=== PATIENT | female | born 1975 | race African-American/Black ===

== ENCOUNTER 2016-05-14 22:33 | Outpatient (CLI) | payer OTHER | END 2016-05-14 22:34 | disposition home or self-care (01) | DX: G47.33 Obstructive sleep apnea (adult) (pediatric) (principal); Z68.41 Body mass index [BMI] 40.0-44.9, adult ==

== ENCOUNTER 2016-11-15 17:58 | Outpatient (CLI) | payer OTHER ==
--- NOTE | 2016-11-16 08:56 | XRAY Report ---
THREE-VIEW LEFT KNEE: 11/15/2016 CLINICAL INDICATION: Pain. FINDINGS: AP, lateral, sunrise views of the left knee demonstrate no evidence of fracture or disloca tion. The joint spaces are preserved. No effusion is present. IMPRESSION: NORMAL LEFT KNEE. JOB #: [id number] EXT JOB #:[id number]
== END 2016-11-15 17:59 | disposition home or self-care (01) ==
LOC: DI 17:58
PROVIDERS: ATTEND Internal Medicine
DX: M25.562 Pain in left knee (principal)

== ENCOUNTER 2017-01-10 15:35 | Outpatient (CLI) | payer OTHER | END 2017-01-10 15:36 | disposition home or self-care (01) | LOC: SC 15:35 | PROVIDERS: ATTEND Internal Medicine Pulmonary Disease | DX: G47.33 Obstructive sleep apnea (adult) (pediatric) (principal) | CPT/HCPCS: 99212 ==

== ENCOUNTER 2017-02-15 15:52 | Outpatient (CLI) | payer OTHER | END 2017-02-15 15:53 | disposition home or self-care (01) | LOC: SC 15:52 | PROVIDERS: ATTEND Nurse Practitioner Family | DX: G47.33 Obstructive sleep apnea (adult) (pediatric) (principal) | CPT/HCPCS: 99212; 99214 ==

== ENCOUNTER 2017-04-27 07:50 | Outpatient (CLI) | payer OTHER ==
[2017-04-27 08:23] LABS: ALBUMIN 4.4 g/dL (3.2-5.5); ALBUMIN/GLOBULIN RATIO 1.2 (1.0-2.2); ALKALINE PHOSPHATASE 43 IU/L (42-121); ALT ALANINE AMINOTRANSFERASE 26 IU/L (10-60); AST ASPARTATE AMINOTRANSFERASE 30 IU/L (10-42); BILIRUBIN,TOTAL 0.7 mg/dL (0.2-1.0); BUN - BLOOD UREA NITROGEN 14 mg/dL (6-20); CALCIUM 9.5 mg/dL (8.5-10.3); CARBON DIOXIDE - CO2 25 mmol/L (21-32); CHLORIDE 102 mmol/L (101-111); CHOL/HDL RATIO 4.1 (<4.4); CHOLESTEROL 141 mg/dL; CREATININE 0.8 mg/dL (0.4-1.0); GFR - MDRD 97 (>89); GLUCOSE 111 mg/dL (70-100); HDL CHOLESTEROL 34 mg/dL; LDL CHOLESTEROL,CALCULATED 68 mg/dL; SODIUM 138 mmol/L (135-145); VLDL CHOLESTEROL 39 mg/dL
[2017-04-27 08:33] LABS: CREATININE,URINE 50.4 mg/dL
[2017-04-27 08:35] LABS: THYROID STIMULATING HORMONE 11.79 uIU/mL (0.34-5.60)
[2017-04-27 08:36] LABS: MICROALBUMIN,URINE < 0.3 mg/dL (0-300.0)
[2017-04-27 08:38] LABS: FREE T4 (FREE THYROXINE) 0.89 ng/dL (0.58-1.64)
[2017-04-27 08:53] LABS: HB2 TOTAL 14.2 g/dL; HEMOGLOBIN A1C 0.75 g/dL
== END 2017-04-27 07:51 | disposition home or self-care (01) ==
LOC: LAB 07:50
PROVIDERS: ATTEND Internal Medicine Endocrinology, Diabetes & Metabolism
DX: E11.65 Type 2 diabetes mellitus with hyperglycemia (principal); E78.5 Hyperlipidemia, unspecified; I10 Essential (primary) hypertension; E03.9 Hypothyroidism, unspecified
CPT/HCPCS: 36415; 80053; 80061; 82043; 82570; 83036; 84439; 84443

== ENCOUNTER 2017-07-12 07:52 | Outpatient (CLI) | payer OTHER ==
[2017-07-12 08:42] LABS: HB2 TOTAL 14.3 g/dL; HEMOGLOBIN A1C 0.63 g/dL; HEMOGLOBIN A1C % 6.2 % (4.6-6.2)
[2017-07-12 08:51] LABS: CHOL/HDL RATIO 3.7 (<4.4); CHOLESTEROL 110 mg/dL; HDL CHOLESTEROL 30 mg/dL; LDL CHOLESTEROL,CALCULATED 59 mg/dL; VLDL CHOLESTEROL 21 mg/dL
[2017-07-12 09:04] LABS: THYROID STIMULATING HORMONE 0.27 uIU/mL (0.34-5.60)
[2017-07-12 09:06] LABS: FREE T4 (FREE THYROXINE) 1.47 ng/dL (0.58-1.64)
== END 2017-07-12 07:53 | disposition home or self-care (01) ==
LOC: LAB 07:52
PROVIDERS: ATTEND Internal Medicine Endocrinology, Diabetes & Metabolism
DX: E11.9 Type 2 diabetes mellitus without complications (principal); E78.5 Hyperlipidemia, unspecified; I10 Essential (primary) hypertension; E03.9 Hypothyroidism, unspecified; E66.9 Obesity, unspecified
CPT/HCPCS: 36415; 80061; 83036; 83721; 84439; 84443

== ENCOUNTER 2017-11-21 17:07 | Outpatient (CLI) | payer OTHER ==
[2017-11-21 17:57] LABS: THYROID STIMULATING HORMONE 7.18 uIU/mL (0.34-5.60)
[2017-11-21 17:59] LABS: FREE T4 (FREE THYROXINE) 0.72 ng/dL (0.58-1.64)
[2017-11-21 18:09] LABS: HB2 TOTAL 13.1 g/dL; HEMOGLOBIN A1C 0.54 g/dL; HEMOGLOBIN A1C % 5.9 % (4.6-6.2)
== END 2017-11-21 17:08 | disposition home or self-care (01) ==
LOC: LAB 17:07
PROVIDERS: ATTEND Nurse Practitioner Family
DX: E11.9 Type 2 diabetes mellitus without complications (principal); E03.9 Hypothyroidism, unspecified
CPT/HCPCS: 36415; 83036; 84439; 84443

== ENCOUNTER 2018-02-15 07:37 | Outpatient (CLI) | payer OTHER ==
[2018-02-15 08:16] LABS: CHOL/HDL RATIO 3.2 (<4.4); CHOLESTEROL 140 mg/dL; HDL CHOLESTEROL 44 mg/dL; LDL CHOLESTEROL,CALCULATED 75 mg/dL; LDL/HDL RATIO 1.7 (<4.4); VLDL CHOLESTEROL 21 mg/dL
[2018-02-15 09:02] LABS: THYROID STIMULATING HORMONE 0.86 uIU/mL (0.34-5.60)
[2018-02-15 09:04] LABS: FREE T4 (FREE THYROXINE) 1.08 ng/dL (0.58-1.64)
== END 2018-02-15 07:38 | disposition home or self-care (01) ==
LOC: LAB 07:37
PROVIDERS: ATTEND Internal Medicine Endocrinology, Diabetes & Metabolism
DX: I10 Essential (primary) hypertension (principal); E11.65 Type 2 diabetes mellitus with hyperglycemia; E66.9 Obesity, unspecified; E03.9 Hypothyroidism, unspecified; E78.5 Hyperlipidemia, unspecified
CPT/HCPCS: 36415; 80061; 83721; 84439; 84443

== ENCOUNTER 2018-02-16 07:46 | Outpatient (CLI) | payer OTHER ==
[2018-02-16 13:51] LABS: HB2 TOTAL 13.9 g/dL; HEMOGLOBIN A1C 0.56 g/dL; HEMOGLOBIN A1C % 5.8 % (4.6-6.2)
== END 2018-02-16 07:47 | disposition home or self-care (01) ==
LOC: LAB 07:46
PROVIDERS: ATTEND Nurse Practitioner Family
DX: E11.9 Type 2 diabetes mellitus without complications (principal); E03.9 Hypothyroidism, unspecified
CPT/HCPCS: 36415; 83036

== ENCOUNTER 2018-03-17 08:04 | Outpatient (CLI) | payer OTHER ==
--- NOTE | 2018-03-20 09:08 | Mammography Report ---
Reason: SCREENING MAMMO Procedure Date: 03/17/2018 Accession Number: [id number] / [id number] Procedure: JEFF - Screening Mammo w/Usman CPT Code: FULL RESULT: EXAM: Screening Mammo w/Usman DATE: 03/17/2018 9:40 AM CLINICAL HISTORY: 42-year-old female with family history of breast cancer in a paternal grandmother and paternal aunt at unknown age presents for screening. TECHNIQUE: Bilateral CC and MLO views were obtained. COMPARISON: 11/08/2014, 09/11/2009. FINDINGS: The breasts demonstrate diffuse fatty replacement bilaterally. No suspicious masses, clustered microcalcifications, or regions of architectural distortion are identified. IMPRESSION: Negative examination RECOMMENDATION: Routine annual screening unless otherwise clinically indicated. BIRADS CATEGORY 1: Negative STANDARD QUALIFYING STATEMENTS: 1. This examination was not reviewed with the aid of Computer-Aided Detection (CAD). 2. A negative or benign imaging report should not delay biopsy if clinically suspicious findings are present. Consider surgical consultation if warranted. More than 5% of cancers are not identified by imaging. 3. Dense breasts may obscure an underlying neoplasm. 4. This examination was reviewed with the aid of 3D breast imaging (tomosynthesis).
== END 2018-03-17 08:05 | disposition home or self-care (01) ==
LOC: DI 08:04
PROVIDERS: ATTEND Nurse Practitioner Family
DX: Z12.31 Encounter for screening mammogram for malignant neoplasm of breast (principal); Z80.3 Family history of malignant neoplasm of breast
CPT/HCPCS: 77063; 77067

== ENCOUNTER 2018-12-12 19:51 | Outpatient (CLI) | payer BC, OTHER ==
--- NOTE | 2018-12-13 12:07 | Ultrasound Report ---
Reason: IUD SURVEILLANCE, LOW BACK PAIN Procedure Date: 12/12/2018 Accession Number: [id number] / [id number] Procedure: US - Pelvic w/Transvaginal CPT Code: FULL RESULT: EXAM: PELVIC ULTRASOUND EXAM DATE: 12/12/2018 09:35 PM. CLINICAL HISTORY: IUD surveillance, low back pain. COMPARISON: None. TECHNIQUE: Realtime transabdominal pelvic scan performed to identify the uterus and adnexa and as an overview of other pelvic structures, followed by transvaginal scan to provide greater detail of the uterus and adnexa, with static image documentation. FINDINGS: Uterus: 9.6 x 4.3 x 4.1 cm, volume 89 cc. Anteverted position. Normal overall size and echotexture. Masses: None. Endometrium: 8.0 mm. There is an IUD in situ. The position appears satisfactory. Cervix: Unremarkable. Right Ovary: 2.9 x 1.1 x 2.3 cm, volume 3.8 cc. Normal echotexture and blood flow. Left Ovary: 5.0 x 3.0 x 3.9 cm, volume 36 cc. Left ovarian cyst measures 3.6 cm. Free Fluid: None. Other: None. IMPRESSION: IUD in satisfactory position. Left ovarian cyst. RADIA
== END 2018-12-12 19:52 | disposition home or self-care (01) ==
LOC: DI 19:51
PROVIDERS: ATTEND Nurse Practitioner
DX: Z30.431 Encounter for routine checking of intrauterine contraceptive device (principal); N83.202 Unspecified ovarian cyst, left side
CPT/HCPCS: 76830; 76856

== ENCOUNTER 2019-03-27 07:23 | Outpatient (CLI) | payer BC, OTHER ==
[2019-03-27 07:59] LABS: ALBUMIN 4.5 g/dL (3.2-5.5); ALBUMIN/GLOBULIN RATIO 1.3 (1.0-2.2); ALKALINE PHOSPHATASE 40 IU/L (42-121); ALT ALANINE AMINOTRANSFERASE 17 IU/L (10-60); AST ASPARTATE AMINOTRANSFERASE 19 IU/L (10-42); BILIRUBIN,TOTAL 0.9 mg/dL (0.2-1.0); BUN - BLOOD UREA NITROGEN 15 mg/dL (6-20); CALCIUM 9.3 mg/dL (8.5-10.3); CARBON DIOXIDE - CO2 28 mmol/L (21-32); CHLORIDE 99 mmol/L (101-111); CHOL/HDL RATIO 4.1 (<4.4); CHOLESTEROL 185 mg/dL; CREATININE 0.7 mg/dL (0.4-1.0); GFR - MDRD 112 (>89); GLUCOSE 144 mg/dL (70-100); HDL CHOLESTEROL 45 mg/dL; LDL CHOLESTEROL,CALCULATED 111 mg/dL; LDL/HDL RATIO 2.5 (<4.4); SODIUM 137 mmol/L (135-145); VLDL CHOLESTEROL 29 mg/dL
[2019-03-27 08:53] LABS: HB2 TOTAL 13.6 g/dL; HEMOGLOBIN A1C 0.65 g/dL; HEMOGLOBIN A1C % 6.5 % (4.6-6.2)
[2019-03-27 11:50] LABS: FREE T4 (FREE THYROXINE) 1.07 ng/dL (0.58-1.64)
== END 2019-03-27 07:24 | disposition home or self-care (01) ==
LOC: LAB 07:23
PROVIDERS: ATTEND Nurse Practitioner
DX: E11.9 Type 2 diabetes mellitus without complications (principal); E78.5 Hyperlipidemia, unspecified; E03.9 Hypothyroidism, unspecified; I10 Essential (primary) hypertension
CPT/HCPCS: 36415; 80053; 80061; 83036; 83721; 84439; 84443

== ENCOUNTER 2019-03-29 17:19 | Outpatient (CLI) | payer BC, OTHER ==
--- NOTE | 2019-03-31 11:12 | Ultrasound Report ---
Reason: HX OVARIAN CYST, LOW BACK PAIN Procedure Date: 03/29/2019 Accession Number: [id number] / [id number] Procedure: US - Pelvic w/Transvaginal CPT Code: Final Report FULL RESULT: EXAM: PELVIC ULTRASOUND EXAM DATE: 03/29/2019 06:16 PM. CLINICAL HISTORY: History of ovarian cyst, low back pain. COMPARISON: PELVIC W/TRANSVAGINAL 12/12/2018 8:33 PM. TECHNIQUE: Realtime transabdominal pelvic scan performed to identify the uterus and adnexa and as an overview of other pelvic structures, followed by transvaginal scan to provide greater detail of the uterus and adnexa, with static image documentation. FINDINGS: Uterus: 10.7 x 3.7 x 5.1 cm, volume 103 cc. Anteverted position. Normal overall size and echotexture. Masses: None. Endometrium: 6 mm. IUD is in normal position. No abnormal flow, endometrial mass or focal thickening. Cervix: No mass. Small volume fluid noted. Right Ovary: Seen only on transabdominal imaging. Ovary was not well seen. 2.5 x 1.7 x 2 cm, volume 4.3 cc. Normal echotexture and blood flow. Left Ovary: Seen only on transabdominal imaging. Ovary not well seen. 1.5 x 1.6 x 2.4 cm, volume 2.9 cc. Normal echotexture and blood flow. Free Fluid: None. Other: Study limited by bowel gas and body habitus. IMPRESSION: 1. Study significantly limited by body habitus. 2. IUD not well seen but appears to be in satisfactory position. No endometrial mass or polyp. 3. Both ovaries are only seen on transabdominal imaging. No gross abnormality. Normal bilateral adnexa. RADIA
== END 2019-03-29 17:20 | disposition home or self-care (01) ==
LOC: DI 17:19
PROVIDERS: ATTEND Nurse Practitioner
DX: M54.5 Low back pain (principal); Z87.42 Personal history of other diseases of the female genital tract; Z97.5 Presence of (intrauterine) contraceptive device
CPT/HCPCS: 76830; 76856

== ENCOUNTER 2019-05-10 07:09 | Outpatient (CLI) | payer BC, OTHER ==
[2019-05-10 07:44] LABS: BASOPHILS % (AUTO) 0.4 %; EOSINOPHILS # (AUTO) 0.2 10^3/uL (0.0-0.7); EOSINOPHILS % (AUTO) 2.9 %; HGB - HEMOGLOBIN 13.6 g/dL (12.0-16.0); LYMPHOCYTES # (AUTO) 1.9 10^3/uL (1.5-3.5); LYMPHOCYTES % (AUTO) 26.2 %; MEAN CORPUSCULAR HGB CONC 32.7 g/dL (32.0-36.0); MEAN CORPUSCULAR VOLUME 85.6 fL (81.0-99.0); MEAN PLATELET VOLUME 9.5 fL (7.9-10.8); MONOCYTES # (AUTO) 0.6 10^3/uL (0.0-1.0); MONOCYTES % (AUTO) 7.7 %; NEUTROPHILS # (AUTO) 4.5 10^3/uL (1.5-6.6); NEUTROPHILS % (AUTO) 62.4 %; PLT - PLATELET COUNT 279 10^3/uL (130-450); RED BLOOD COUNT 4.86 10^6/uL (4.20-5.40); RED CELL DISTRIBUTION WIDTH 12.5 % (12.0-15.0); WHITE BLOOD COUNT 7.3 x10^3/uL (4.8-10.8)
[2019-05-10 09:39] LABS: MAGNESIUM 2.5 mg/dL (1.7-2.8)
== END 2019-05-10 07:10 | disposition home or self-care (01) ==
LOC: LAB 07:09
PROVIDERS: ATTEND Nurse Practitioner
DX: E11.9 Type 2 diabetes mellitus without complications (principal); R25.2 Cramp and spasm
CPT/HCPCS: 36415; 80051; 83735; 85025

== ENCOUNTER 2019-05-14 19:36 | Outpatient (CLI) | payer BC, OTHER ==
--- NOTE | 2019-05-15 13:46 | Ultrasound Report ---
Reason: LEG CRAMPS BILAT, DIABETES TYPE 2 Procedure Date: 05/14/2019 Accession Number: [id number] / [id number] Procedure: US - Duplex Ext Veins Bilateral CPT Code: Final Report FULL RESULT: EXAM: BILATERAL LOWER EXTREMITY VENOUS ULTRASOUND EXAM DATE: 05/14/2019 09:14 PM. CLINICAL HISTORY: LEG CRAMPS BILAT, DIABETES TYPE 2. COMPARISON: None. TECHNIQUE: Real-time sonographic vascular imaging was performed by the wind turbine installer through the lower extremities utilizing both color-flow and Doppler spectral analysis. Multiple agency service representative static images were saved for review. FINDINGS: Right: Common Femoral Vein (CFV): Normal. CFV-GSV Junction: Normal. Profunda Femoral Vein (PFV): Normal. Femoral Vein (FV) Prox: Normal. Femoral Vein (FV) Mid: Normal. Femoral Vein (FV) Dist: Normal. Popliteal Vein: Normal. Posterior Tibial Veins: No thrombus. Limited visualization Peroneal Veins: Normal. Left: Common Femoral Vein (CFV): Normal. CFV-GSV Junction: Normal. Profunda Femoral Vein (PFV): Normal. Femoral Vein (FV) Prox: Normal. Femoral Vein (FV) Mid: Normal. Femoral Vein (FV) Dist: Normal. Popliteal Vein: Normal. Posterior Tibial Veins: No thrombus. Limited visualization Peroneal Veins: Normal. Other: None. IMPRESSION: No evidence for deep venous thrombosis bilaterally. Bilateral calf veins are not well seen RADIA
== END 2019-05-14 19:37 | disposition home or self-care (01) ==
LOC: DI 19:36
PROVIDERS: ATTEND Nurse Practitioner
DX: R25.2 Cramp and spasm (principal); E11.9 Type 2 diabetes mellitus without complications
CPT/HCPCS: 93970

== ENCOUNTER 2019-05-17 08:00 | Outpatient (CLI) | payer BC, OTHER ==
[2019-05-17 17:50] LABS: ALBUMIN 4.6 g/dL (3.2-5.5); ALBUMIN/GLOBULIN RATIO 1.4 (1.0-2.2); BILIRUBIN,TOTAL 0.8 mg/dL (0.2-1.0); CALCIUM 9.7 mg/dL (8.5-10.3); CREATININE 0.7 mg/dL (0.4-1.0); TOTAL PROTEIN 7.9 g/dL (6.7-8.2)
[2019-05-17 18:30] LABS: THYROID STIMULATING HORMONE 0.48 uIU/mL (0.34-5.60)
[2019-05-17 18:31] LABS: FREE T4 (FREE THYROXINE) 1.45 ng/dL (0.58-1.64)
== END 2019-05-17 23:59 | disposition home or self-care (01) ==
LOC: LAB 08:00
PROVIDERS: ATTEND Nurse Practitioner
DX: R25.2 Cramp and spasm (principal); E03.9 Hypothyroidism, unspecified; E11.9 Type 2 diabetes mellitus without complications
CPT/HCPCS: 36415; 80053; 84439; 84443; 84481

== ENCOUNTER 2019-05-17 17:13 | Outpatient (CLI) | payer BC, OTHER | END 2019-05-17 17:14 | disposition home or self-care (01) | LOC: LAB 17:13 | PROVIDERS: ATTEND Nurse Practitioner | DX: Z53.9 Procedure and treatment not carried out, unspecified reason (principal) ==

== ENCOUNTER 2019-05-18 17:09 | Outpatient (CLI) | payer BC, OTHER ==
--- NOTE | 2019-05-18 21:06 | Ultrasound Report ---
Reason: LEG CRAMPS BILAT Procedure Date: 05/18/2019 Accession Number: [id number] / [id number] Procedure: US - Duplex Lwr Ext Arterial Bilat CPT Code: Final Report FULL RESULT: EXAM: Bilateral Lower Extremity Arterial Doppler Ultrasound EXAM DATE: 05/18/2019 05:36 PM. CLINICAL HISTORY: LEG CRAMPS BILATERALLY. DIABETIC. COMPARISON: None. TECHNIQUE: Real-time sonographic vascular imaging was performed by the mems integration engineer, utilizing color-flow, Doppler flow, and spectral analysis. Multiple novelties sales representative static images were saved for review. FINDINGS: Right Lower Extremity: SUPERVISOR BUILDING MAINTENANCE: PSV 166 cm/sec. Triphasic waveform. PSFA: PSV 89 cm/sec. Triphasic waveform. MSFA: PSV 110 cm/sec. Triphasic waveform. DSFA: PSV 93 cm/sec. Triphasic waveform. PFA: PSV 93 cm/sec. Monophasic waveform. POP: PSV 60 cm/sec. Triphasic waveform. ALANNAH: PSV 22 cm/sec. Monophasic waveform. TRAIN GATE ATTENDANT: PSV 81 cm/sec. Triphasic waveform. NEO: PSV 37 cm/sec. Monophasic waveform. DPA: PSV 46 cm/sec. Biphasic waveform. Left Lower Extremity: SUPERVISOR BUILDING MAINTENANCE: PSV 129 cm/sec. Triphasic waveform. PSFA: PSV 117 cm/sec. Triphasic waveform. MSFA: PSV 91 cm/sec. Triphasic waveform. DSFA: PSV 59 cm/sec. Monophasic waveform. PFA: PSV 56 cm/sec. Monophasic waveform. POP: Not obtained. ALANNAH: PSV 35 cm/sec. Biphasic waveform. TRAIN GATE ATTENDANT: PSV 68 cm/sec. Triphasic waveform. NEO: PSV 24 cm/sec. Monophasic waveform. DPA: PSV 24 cm/sec. Biphasic waveform. IMPRESSION: Three-vessel arterial flow to the ankles bilaterally with no stenoses or occlusions identified. RADIA
== END 2019-05-18 17:10 | disposition home or self-care (01) ==
LOC: DI 17:09
PROVIDERS: ATTEND Nurse Practitioner
DX: R25.2 Cramp and spasm (principal)
CPT/HCPCS: 93925

== ENCOUNTER 2019-06-02 12:35 | Outpatient (CLI) | payer BC, OTHER ==
--- NOTE | 2019-06-02 21:09 | XRAY Report ---
Reason: Low back pain and bilateral leg cramps Procedure Date: 06/02/2019 Accession Number: [id number] / [id number] Procedure: XR - Lumbar Spine Complete CPT Code: Final Report FULL RESULT: EXAM: LUMBOSACRAL SPINE RADIOGRAPHY EXAM DATE: 06/02/2019 01:00 PM. CLINICAL HISTORY: Low back pain and bilateral leg cramps. COMPARISONS: None. TECHNIQUE: 3 views. FINDINGS: Alignment: Normal. No spondylolisthesis or scoliosis. Bones: Five [id number] lumbar vertebral bodies are present. No fractures or bone lesions. Disks: Normal. Disk heights are maintained. Facets: Facet arthropathy at L4-L5 and L5-S1. Suggestion of moderate bilateral neural foraminal and spinal canal stenosis at L5-S1. Sacroiliac Joints: Unremarkable. Soft Tissues: Normal. The visualized bowel gas pattern is normal. IMPRESSION: Suggestion of moderate bilateral neural foraminal and spinal canal stenosis at L5-S1. No acute displaced fracture or malalignment. RADIA
== END 2019-06-02 12:36 | disposition home or self-care (01) ==
LOC: DI 12:35
PROVIDERS: ATTEND Nurse Practitioner
DX: M47.816 Spondylosis without myelopathy or radiculopathy, lumbar region (principal); M47.817 Spondylosis without myelopathy or radiculopathy, lumbosacral region
CPT/HCPCS: 72110

== ENCOUNTER 2019-06-15 07:40 | Outpatient (CLI) | payer BC, OTHER ==
--- NOTE | 2019-06-26 15:26 | Mammography Report ---
Reason: ROUTINE MAMMO Procedure Date: 06/15/2019 Accession Number: [id number] / [id number] Procedure: JEFF - Screening Mammo w/Usman CPT Code: Final Report FULL RESULT: EXAM: Screening Mammo w/Usman DATE: 06/15/2019 8:21 AM CLINICAL HISTORY: Screening encounter. Family history of breast cancer in a paternal grandmother at unknown age and a maternal aunt at the age of 30. TECHNIQUE: (B) - Bilateral CC and MLO views were obtained. COMPARISON: 03/17/2018 through 09/11/2009. PARENCHYMAL PATTERN: (A) - The breast(s) demonstrate(s) scattered fibroglandular densities. FINDINGS: There are no suspicious masses, calcifications, or areas of distortion. IMPRESSION: Negative examination. BI-RADS category 1. RECOMMENDATION: (ANNUAL) - Recommend routine annual screening mammography. BI-RADS CATEGORY: (1) - Negative. STANDARD QUALIFYING STATEMENTS: 1. This examination was not reviewed with the aid of Computer-Aided Detection (CAD). 2. A negative or benign imaging report should not preclude biopsy if clinically suspicious findings are present. 3. Dense breasts may obscure an underlying neoplasm. 4. This examination was reviewed with the aid of 3D breast imaging (tomosynthesis).
== END 2019-06-15 07:41 | disposition home or self-care (01) ==
LOC: DI 07:40
PROVIDERS: ATTEND Nurse Practitioner
DX: Z12.31 Encounter for screening mammogram for malignant neoplasm of breast (principal); Z80.3 Family history of malignant neoplasm of breast
CPT/HCPCS: 77063; 77067

== ENCOUNTER 2019-09-04 07:47 | Outpatient (CLI) | payer BC, OTHER ==
[2019-09-04 13:33] LABS: HB2 TOTAL 13.3 g/dL; HEMOGLOBIN A1C 0.64 g/dL; HEMOGLOBIN A1C % 6.6 % (4.6-6.2)
[2019-09-04 13:35] LABS: ALBUMIN 4.2 g/dL (3.2-5.5); ALBUMIN/GLOBULIN RATIO 1.3 (1.0-2.2); ALKALINE PHOSPHATASE 35 IU/L (42-121); ALT ALANINE AMINOTRANSFERASE 20 IU/L (10-60); AST ASPARTATE AMINOTRANSFERASE 21 IU/L (10-42); BILIRUBIN,TOTAL 0.8 mg/dL (0.2-1.0); BUN - BLOOD UREA NITROGEN 14 mg/dL (6-20); CALCIUM 9.4 mg/dL (8.5-10.3); CARBON DIOXIDE - CO2 27 mmol/L (21-32); CHLORIDE 101 mmol/L (101-111); CHOL/HDL RATIO 3.1 (<4.4); CHOLESTEROL 148 mg/dL; CREATININE 0.7 mg/dL (0.4-1.0); GLUCOSE 146 mg/dL (70-100); HDL CHOLESTEROL 47 mg/dL; LDL CHOLESTEROL,CALCULATED 75 mg/dL; LDL/HDL RATIO 1.6 (<4.4); SODIUM 137 mmol/L (135-145); TOTAL PROTEIN 7.4 g/dL (6.7-8.2); VLDL CHOLESTEROL 26 mg/dL
[2019-09-04 13:41] LABS: THYROID STIMULATING HORMONE 2.76 uIU/mL (0.34-5.60)
[2019-09-04 13:42] LABS: FREE T3 3.58 pg/mL (2.5-3.9)
[2019-09-04 13:43] LABS: FREE T4 (FREE THYROXINE) 1.04 ng/dL (0.58-1.64)
== END 2019-09-04 23:59 | disposition home or self-care (01) ==
LOC: LAB.WCP 07:47
PROVIDERS: ATTEND Nurse Practitioner
DX: E78.5 Hyperlipidemia, unspecified (principal); E11.9 Type 2 diabetes mellitus without complications; E03.9 Hypothyroidism, unspecified
CPT/HCPCS: 36415; 80053; 80061; 83036; 83721; 84439; 84443; 84481

== ENCOUNTER 2019-10-14 09:33 | Outpatient (CLI) | payer BC, OTHER ==
--- NOTE | 2019-10-15 10:15 | Ultrasound Report ---
PROCEDURE: Abdomen Limited INDICATIONS: RUQ ABD PX TECHNIQUE: Real-time scanning was performed of the abdominal and retroperitoneal organs, with image documentatio n. COMPARISON: 07/08/2014. CT of abdomen and pelvis dated 10/25/2008 FINDINGS: Liver: Liver is normal in size. Coarsely heterogeneous liver parenchymal echotexture is seen with 1. 2 x 0.9 x 1.1 cm hypoechoic area seen in inferior and lateral aspect of right hepatic lobe. Internal vascularity is seen. Gallbladder: There is no gallstone. No gallbladder wall thickening or pericholecystic fluid. No sonog raphic Sauceda's sign. Biliary ducts: Intrahepatic bile ducts are non-dilated. Extrahepatic bile duct caliber measures 4 m m. Normal is 6-7 mm or less in diameter, or 10 mm or less post-cholecystectomy. Pancreas: Visualized portions of the pancreas are sonographically normal. Kidneys: Right kidney measures 10.9 cm in length. No hydronephrosis or nephrolithiasis. No solid mas ses. IVC: Intrahepatic inferior vena cava is patent. Miscellaneous: No free abdominal fluid. IMPRESSION: 1. Coarsely heterogeneous liver parenchymal echotexture. Finding is suggestive of hepatic steatosis v ersus other type of metabolic liver parenchymal disease. 1.2 x 1.1 x 0.9 cm hypoechoic area involving the inferior lateral aspect of right hepatic lobe with internal vascularity. This is of indeterminat e significance. Follow-up ultrasound study is recommended in 6 months. 2. Normal-appearing gallbladder. No biliary ductal dilatation. 3. Rest of exam is unremarkable. Reviewed by: Antwon Osorio MD on 10/15/2019 10:14 AM PDT Approved by: Antwon Osorio MD on 10/15/2019 10:14 AM PDT Station ID: [id number]
== END 2019-10-14 09:34 | disposition home or self-care (01) ==
LOC: DI 09:33
PROVIDERS: ATTEND Nurse Practitioner
DX: R93.2 Abnormal findings on diagnostic imaging of liver and biliary tract (principal)
CPT/HCPCS: 76705

== ENCOUNTER 2020-01-29 06:57 | Outpatient (CLI) | payer BC, OTHER ==
[2020-01-29 07:24] LABS: ALBUMIN 3.9 g/dL (3.2-5.5); ALBUMIN/GLOBULIN RATIO 1.2 (1.0-2.2); BILIRUBIN,TOTAL 0.6 mg/dL (0.2-1.0); CREATININE 0.7 mg/dL (0.4-1.0); TOTAL PROTEIN 7.2 g/dL (6.7-8.2)
[2020-01-29 07:41] LABS: THYROID STIMULATING HORMONE 10.58 uIU/mL (0.34-5.60)
[2020-01-29 07:43] LABS: FREE T3 3.3 pg/mL (2.5-3.9); FREE T4 (FREE THYROXINE) 0.83 ng/dL (0.58-1.64)
[2020-01-29 07:46] LABS: CREATININE,URINE 91.6 mg/dL; MICROALBUM/CREATININE RATIO,UR 7.6 ug/mg (<30.0); MICROALBUMIN,URINE 0.7 mg/dL (0-300.0)
[2020-01-29 12:04] LABS: HEMOGLOBIN A1c% 7.5 % (4.27-6.07)
== END 2020-01-29 06:58 | disposition home or self-care (01) ==
LOC: LAB 06:57
PROVIDERS: ATTEND Nurse Practitioner
DX: E03.9 Hypothyroidism, unspecified (principal); E78.5 Hyperlipidemia, unspecified; E11.9 Type 2 diabetes mellitus without complications; K76.0 Fatty (change of) liver, not elsewhere classified
CPT/HCPCS: 36415; 80053; 82043; 82570; 83036; 84439; 84443; 84481

== ENCOUNTER 2020-06-26 08:04 | Outpatient (CLI) | payer BC, OTHER ==
[2020-06-26 08:30] LABS: BASOPHILS % (AUTO) 0.5 %; EOSINOPHILS # (AUTO) 0.2 10^3/uL (0.0-0.7); EOSINOPHILS % (AUTO) 2.7 %; HCT - HEMATOCRIT 43.7 % (37.0-47.0); HGB - HEMOGLOBIN 13.7 g/dL (12.0-16.0); LYMPHOCYTES # (AUTO) 1.8 10^3/uL (1.5-3.5); LYMPHOCYTES % (AUTO) 22.2 %; MEAN CORPUSCULAR HEMOGLOBIN 27.1 pg (27.0-31.0); MEAN CORPUSCULAR HGB CONC 31.4 g/dL (32.0-36.0); MEAN CORPUSCULAR VOLUME 86.4 fL (81.0-99.0); MEAN PLATELET VOLUME 9.1 fL (7.9-10.8); MONOCYTES # (AUTO) 0.5 10^3/uL (0.0-1.0); MONOCYTES % (AUTO) 6.1 %; NEUTROPHILS # (AUTO) 5.5 10^3/uL (1.5-6.6); NEUTROPHILS % (AUTO) 67.8 %; PLT - PLATELET COUNT 294 10^3/uL (130-450); RED BLOOD COUNT 5.06 10^6/uL (4.20-5.40); RED CELL DISTRIBUTION WIDTH 13.5 % (12.0-15.0); WHITE BLOOD COUNT 8.2 x10^3/uL (4.8-10.8)
[2020-06-26 08:52] LABS: ALBUMIN 4.3 g/dL (3.2-5.5); ALBUMIN/GLOBULIN RATIO 1.2 (1.0-2.2); ALKALINE PHOSPHATASE 38 IU/L (42-121); ALT ALANINE AMINOTRANSFERASE 26 IU/L (10-60); AST ASPARTATE AMINOTRANSFERASE 27 IU/L (10-42); BILIRUBIN,TOTAL 0.6 mg/dL (0.2-1.0); BUN - BLOOD UREA NITROGEN 12 mg/dL (6-20); CALCIUM 9.8 mg/dL (8.5-10.3); CARBON DIOXIDE - CO2 27 mmol/L (21-32); CHLORIDE 99 mmol/L (101-111); CHOLESTEROL 178 mg/dL; CREATININE 0.7 mg/dL (0.4-1.0); GFR - MDRD 111 (>89); GLUCOSE 181 mg/dL (70-100); HDL CHOLESTEROL 44 mg/dL; LDL CHOLESTEROL,CALCULATED 99 mg/dL; LDL/HDL RATIO 2.3 (<4.4); POTASSIUM 4.4 mmol/L (3.5-5.0); SODIUM 138 mmol/L (135-145); TRIGLYCERIDES 174 mg/dL; VLDL CHOLESTEROL 35 mg/dL
[2020-06-26 11:55] LABS: ESTIMATED AVERAGE GLUCOSE 192 mg/dL (70-100); HEMOGLOBIN A1c% 8.3 % (4.27-6.07)
[2020-06-26 13:47] LABS: T4 (THYROXINE) 10.65 ug/dL (6.09-12.23)
[2020-06-26 13:51] LABS: THYROID STIMULATING HORMONE 4.44 uIU/mL (0.34-5.60)
== END 2020-06-26 08:05 | disposition home or self-care (01) ==
LOC: LAB 08:04
PROVIDERS: ATTEND Internal Medicine Endocrinology, Diabetes & Metabolism
DX: E11.65 Type 2 diabetes mellitus with hyperglycemia (principal); I10 Essential (primary) hypertension; E66.9 Obesity, unspecified; E03.9 Hypothyroidism, unspecified; E78.5 Hyperlipidemia, unspecified
CPT/HCPCS: 36415; 80053; 80061; 83036; 83721; 84436; 84443; 85025

== ENCOUNTER 2021-06-21 10:28 | Outpatient (CLI) | payer OTHER | END 2021-06-21 10:29 | disposition home or self-care (01) | LOC: LAB 10:28 | PROVIDERS: ATTEND Physician Assistant | DX: Z53.9 Procedure and treatment not carried out, unspecified reason (principal) | CPT/HCPCS: 80053; 80061; 83036; 83721; 84443; 85025 ==

== ENCOUNTER 2021-06-27 09:40 | Outpatient (CLI) | payer OTHER ==
[2021-06-27 13:54] LABS: BASOPHILS % (AUTO) 0.4 %; EOSINOPHILS # (AUTO) 0.2 10^3/uL (0.0-0.7); EOSINOPHILS % (AUTO) 2.1 %; HCT - HEMATOCRIT 41.1 % (37.0-47.0); HGB - HEMOGLOBIN 13.1 g/dL (12.0-16.0); MEAN CORPUSCULAR HEMOGLOBIN 27.2 pg (27.0-31.0); MEAN CORPUSCULAR HGB CONC 31.9 g/dL (32.0-36.0); MEAN CORPUSCULAR VOLUME 85.4 fL (81.0-99.0); MEAN PLATELET VOLUME 10.4 fL (7.9-10.8); MONOCYTES # (AUTO) 0.5 10^3/uL (0.0-1.0); MONOCYTES % (AUTO) 5.7 %; NEUTROPHILS # (AUTO) 5.4 10^3/uL (1.5-6.6); NEUTROPHILS % (AUTO) 66.4 %; PLT - PLATELET COUNT 320 10^3/uL (130-450); RED BLOOD COUNT 4.81 10^6/uL (4.20-5.40); RED CELL DISTRIBUTION WIDTH 12.8 % (12.0-15.0); WHITE BLOOD COUNT 8.1 x10^3/uL (4.8-10.8)
[2021-06-27 14:20] LABS: ALBUMIN 4.1 g/dL (3.2-5.5); ALBUMIN/GLOBULIN RATIO 1.1 (1.0-2.2); ALKALINE PHOSPHATASE 42 IU/L (42-121); ALT ALANINE AMINOTRANSFERASE 38 IU/L (10-60); AST ASPARTATE AMINOTRANSFERASE 100 IU/L (10-42); BILIRUBIN,TOTAL 0.6 mg/dL (0.2-1.0); BUN - BLOOD UREA NITROGEN 9 mg/dL (6-20); CALCIUM 9.2 mg/dL (8.5-10.3); CARBON DIOXIDE - CO2 26 mmol/L (21-32); CHLORIDE 100 mmol/L (101-111); CHOL/HDL RATIO 3.5 (<4.4); CHOLESTEROL 149 mg/dL; CREATININE 0.6 mg/dL (0.4-1.0); GFR - MDRD 132 (>89); GLUCOSE 159 mg/dL (70-100); HDL CHOLESTEROL 42 mg/dL; LDL CHOLESTEROL,CALCULATED 80 mg/dL; LDL/HDL RATIO 1.9 (<4.4); POTASSIUM 4.1 mmol/L (3.5-5.0); SODIUM 137 mmol/L (135-145); TOTAL PROTEIN 7.9 g/dL (6.7-8.2); TRIGLYCERIDES 137 mg/dL; VLDL CHOLESTEROL 27 mg/dL
[2021-06-27 14:34] LABS: THYROID STIMULATING HORMONE 7.34 uIU/mL (0.34-5.60)
[2021-06-27 15:23] LABS: FREE T4 (FREE THYROXINE) 1.08 ng/dL (0.58-1.64)
[2021-06-27 19:25] LABS: ESTIMATED AVERAGE GLUCOSE 252 mg/dL (70-100); HEMOGLOBIN A1c% 10.4 % (4.27-6.07)
== END 2021-06-27 09:41 | disposition home or self-care (01) ==
LOC: LAB.N 09:40
PROVIDERS: ATTEND Physician Assistant
DX: E03.9 Hypothyroidism, unspecified (principal); E11.9 Type 2 diabetes mellitus without complications
CPT/HCPCS: 36415; 80053; 80061; 83036; 83721; 84439; 84443; 85025

== ENCOUNTER 2021-07-19 19:55 | Emergency (ER) | payer OTHER ==
[2021-07-19 20:03] VITALS: BP 172/83
--- NOTE | 2021-07-19 20:12 | ED Physician Documentation ---
PD HPI LOWER EXT INJURY - Stated complaint Stated Complaint: L FOOT PX - Chief complaint Chief Complaint: Ext Problem - History obtained from History obtained from: Patient - Additional information Additional information: Without specific injury she developed a painful area on her left dorsal foot tod ay. It really only hurts when she walks, some very mild pain when she is not walking. She does not feel sick with it. Comorbidities include hypothyroidism, diabetes. 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 - Present Medications Home Medications: Ambulatory Orders Medication Instructions Recorded Confirmed Levothyroxine [Synthroid] 125 mcg PO QDAC 10/12/12 02/27/15 Rosuvastatin Calcium [Crestor] 20 mg PO DAILY 10/12/12 02/27/15 lisinopriL [Lisinopril] 5 mg PO DAILY 05/03/14 02/27/15 Empagliflozin [Jardiance] 10 mg DAILY 02/27/15 02/27/15 cephALEXin [Keflex] 500 mg PO Q6H #28 cap 07/19/21 - Allergies Allergies/Adverse Reactions: Allergies Allergy/AdvReac Type Severity Reaction Status Date / Time No Known Drug Allergies Allergy Verified 07/19/21 20:02 - Social History Does the pt smoke?: No Smoking Status: Never smoker Does the pt drink ETOH?: No Does the pt have substance abuse?: No - Immunizations Immunizations are current?: Yes - POLST Patient has POLST: No PD ED PE NORMAL - Vitals Vital signs reviewed: Yes - General General: Alert and oriented X 3, No acute distress - Extremities Extremities: No edema, No calf tenderness / cord - Neuro Neuro: Alert and oriented X 3, Normal speech - Psych Psych: Normal mood, Normal affect PD ED PE EXPANDED - Extremities Feet visual: 1 - tenderness (She is tender here with may be just a bit of warmth and cellulitis. The overall patch measures may be 3 cm around. No tenderness in any other part of the foot nor on the plantar surface of the foot.) Results - Vitals Vitals: Vital Signs - 24 hr 07/19/21 19:59 Temperature 36.8 C Heart Rate 104 H Respiratory 18 Rate Blood Pressure 172/83 H O2 Saturation 100 Oxygen O2 Source Room air PD MEDICAL DECISION MAKING - ED course ED course: 45-year-old woman with history of diabetes presents with left foot pain. It is a patch of pain on the dorsal left foot kind of over the proximal fourth metatarsal. An x-ray was done and this showed what looks to me like potentially a needle or a small metal fragment on the underside of the second metatarsal. She was reexamined closely and there does not seem to be any puncture wound or tenderness there. This finding was discussed with her, the acuity is completely unknown, that said it does not seem to be clinically related to her current issue which I suspect is a small area of cellulitis of the dorsal left foot. She declined pain medications for this. She is started on Keflex. She is ref erred to orthopedics for reevaluation of the probably chronic plantar foreign body. Departure - Departure Disposition: 01 Home, Self Care Clinical Impression: Cellulitis of left foot Condition: Good Record reviewed to determine appropriate education?: Yes Instructions: Cellulitis Dc Follow-Up: [facility] [Provider Group] Prescriptions: cephALEXin [Keflex] 500 mg PO Q6H #28 cap Comments: I sent your prescription electronically to [facility] in [place]. As discussed, I think you have a minor infection of the skin of the dorsum of the left foot. That said on x-ray tonight we found that you probably have a metallic foreign body that could be quite old as far as we know on the underside of the foot. Follow-up with Dr. Maldonado to consider whether this needs removal. I am treating the foot infection though with antibiotics. You should keep an eye on it closely and return if it worsens or if you feel generally ill such as a fever. Reasonable to follow-up with your primary care physician for this in a few days for recheck.
--- NOTE | 2021-07-19 21:12 | XRAY Report ---
PROCEDURE: Foot 3 View LT INDICATIONS: foot pain TECHNIQUE: 3 views of the foot were acquired. COMPARISON: None FINDINGS: Bones: No fractures or dislocations. No suspicious bony lesions. 6 mm linear density is noted over lying the soft tissues between the first and second metatarsals. Calcaneal spur is present. Soft tissues: No tibiotalar joint effusion. Achilles tendon appears normal. IMPRESSION: No visualized acute fracture or dislocation. However, occult injury cannot be excluded. Recommend stanford rt interval imaging follow-up in 7-10 days as clinically indicated for additional evaluation. Linear radiodensity as described above. Foreign body cannot be excluded and clinical correlation is r ecommended. Reviewed by: Trena Hopkins MD on 07/19/2021 9:10 PM PDT Approved by: Trena Hopkins MD on 07/19/2021 9:10 PM PDT Station ID: [id number]
[2021-07-19] MEDS: CEPHALEXIN 250 MG Prepack 8 CAP BOTTLE PO STA (21:27)
== END 2021-07-19 21:27 | disposition home or self-care (01) ==
LOC: ED 19:55
DX: L03.116 Cellulitis of left lower limb (principal)
CPT/HCPCS: 99282; 99283

== ENCOUNTER 2021-08-01 10:37 | Outpatient (CLI) | payer OTHER ==
[2021-08-01 14:15] LABS: THYROID STIMULATING HORMONE 10.87 uIU/mL (0.34-5.60)
[2021-08-01 14:17] LABS: FREE T4 (FREE THYROXINE) 0.81 ng/dL (0.58-1.64)
== END 2021-08-01 10:38 | disposition home or self-care (01) ==
LOC: DI.N 10:37
PROVIDERS: ATTEND Physician Assistant
DX: E03.9 Hypothyroidism, unspecified (principal)
CPT/HCPCS: 36415; 84439; 84443; 84480

== ENCOUNTER 2021-11-10 21:08 | Emergency (ER) | payer OTHER ==
[2021-11-10 22:57] LABS: BASOPHILS % (AUTO) 0.3 %; EOSINOPHILS # (AUTO) 0.2 10^3/uL (0.0-0.7); EOSINOPHILS % (AUTO) 1.9 %; HGB - HEMOGLOBIN 12.3 g/dL (12.0-16.0); LYMPHOCYTES # (AUTO) 1.8 10^3/uL (1.5-3.5); LYMPHOCYTES % (AUTO) 18.8 %; MEAN CORPUSCULAR HEMOGLOBIN 27.3 pg (27.0-31.0); MEAN CORPUSCULAR HGB CONC 33.2 g/dL (32.0-36.0); MEAN CORPUSCULAR VOLUME 82.2 fL (81.0-99.0); MEAN PLATELET VOLUME 9.3 fL (7.9-10.8); MONOCYTES # (AUTO) 0.6 10^3/uL (0.0-1.0); MONOCYTES % (AUTO) 5.7 %; NEUTROPHILS # (AUTO) 7.1 10^3/uL (1.5-6.6); PLT - PLATELET COUNT 295 10^3/uL (130-450); RED CELL DISTRIBUTION WIDTH 12.6 % (12.0-15.0); WHITE BLOOD COUNT 9.7 x10^3/uL (4.8-10.8)
[2021-11-10 23:11] LABS: ALBUMIN 3.9 g/dL (3.2-5.5); ALBUMIN/GLOBULIN RATIO 1.1 (1.0-2.2); BILIRUBIN,TOTAL 0.8 mg/dL (0.2-1.0); CALCIUM 9.7 mg/dL (8.5-10.3); CREATININE 0.7 mg/dL (0.4-1.0); POTASSIUM 4.3 mmol/L (3.5-5.0); TOTAL PROTEIN 7.5 g/dL (6.7-8.2)
[2021-11-11 00:51] LABS: BILIRUBIN,URINE NEGATIVE (NEGATIVE); GLUCOSE, URINE (UA) NEGATIVE (NEGATIVE); KETONES,URINE (UA) NEGATIVE (NEGATIVE); LEUKOCYTE ESTERASE, URINE NEGATIVE (NEGATIVE); NITRITE,URINE NEGATIVE (NEGATIVE); OCCULT BLOOD,URINE NEGATIVE (NEGATIVE); PROTEIN,URINE NEGATIVE (NEGATIVE); UROBILINOGEN,URINE 1 (NORMAL) E.U./dL (NORMAL)
[2021-11-11 00:52] LABS: CLARITY,URINE CLEAR (CLEAR)
[2021-11-11 00:53] LABS: HCG UR QUAL NEGATIVE
--- NOTE | 2021-11-11 00:56 | ED Physician Documentation ---
PD HPI ABD PAIN - Stated complaint Stated Complaint: CONSTIPATION,CRAMPING - Chief complaint Chief Complaint: Abd Pain - History obtained from History obtained from: Patient - Additional information Additional information: Patient is a 45-year-old female presenting for evaluation of constipation. She reports being on Ozempic which has recently caused her issues with bowel movements. She had not had a good bowel movement for 3 to 4 days and gave herself an enema today. She also reports attempting to manually disimpact herself at home. She did say that she had a bowel movement with the enema but still feels like she has stool that needs to come out. She reports having some mild abdominal cramping after giving herself the enema. She denies fever, chest pain, difficulty breathing, nausea or vomiting. She denies blood in stools. She denies concerns for or dysuria.She denies a history of abdominal surgeries. Review of Systems Constitutional: denies: Fever Nose: denies: Congestion Cardiac: denies: Chest pain / pressure Respiratory: denies: Dyspnea GI: reports: Constipation. 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 - Present Medications Home Medications: Ambulatory Orders Medication Instructions Recorded Confirmed Levothyroxine [Synthroid] 125 mcg PO QDAC 10/12/12 02/27/15 Rosuvastatin Calcium [Crestor] 20 mg PO DAILY 10/12/12 02/27/15 lisinopriL [Lisinopril] 5 mg PO DAILY 05/03/14 02/27/15 Empagliflozin [Jardiance] 10 mg DAILY 02/27/15 02/27/15 cephALEXin [Keflex] 500 mg PO Q6H #28 cap 07/19/21 - Allergies Allergies/Adverse Reactions: Allergies Allergy/AdvReac Type Severity Reaction Status Date / Time No Known Drug Allergies Allergy Verified 11/10/21 21:19 - Social History Does the pt smoke?: No Smoking Status: Never smoker Does the pt drink ETOH?: No Does the pt have substance abuse?: No - Immunizations Immunizations are current?: Yes - POLST Patient has POLST: No PD ED PE NORMAL - General General: Alert and oriented X 3, No acute distress, Well developed/nourished - HEENT HEENT: Atraumatic, Moist mucous membranes - Neck Neck: Supple, no meningeal sign - Cardiac Cardiac: RRR, No murmur, Strong equal pulses - Respiratory Respiratory: No respiratory distress, Clear bilaterally - Abdomen Abdomen: Normal bowel sounds, Soft, Non tender, Non distended - Rectal Rectal: Other (Chaperoned by Dominga, normal rectal tone, no stool in Rectum) Results - Vitals Vitals: Vital Signs - 24 hr 11/10/21 11/11/21 11/11/21 21:15 00:22 01:02 Temperature 36.7 C 36.6 C 36.6 C Heart Rate 100 81 82 Respiratory 14 16 16 Rate Blood Pressure 132/92 H 133/81 H 131/79 H O2 Saturation 97 98 99 Oxygen O2 Source Room air - Labs Labs: Laboratory Tests 11/10/21 11/10/21 11/11/21 22:53 22:53 00:41 WBC 9.7 RBC 4.50 Hgb 12.3 Hct 37.0 MCV 82.2 MCH 27.3 MCHC 33.2 RDW 12.6 Plt Count 295 MPV 9.3 Neut # (Auto) 7.1 H Lymph # (Auto) 1.8 [place] # (Auto) 0.6 Eos # (Auto) 0.2 Baso # (Auto) 0.0 Absolute Nucleated RBC 0.00 Nucleated RBC % 0.0 Sodium 136 Potassium 4.3 Chloride 100 L Carbon Dioxide 27 Anion Gap 9.0 BUN 11 Creatinine 0.7 Estimated GFR (MDRD) 111 Glucose 202 H Calcium 9.7 Total Bilirubin 0.8 AST 39 ALT 30 Alkaline Phosphatase 43 Total Protein 7.5 Albumin 3.9 Globulin 3.6 Albumin/Globulin Ratio 1.1 Lipase 32 Urine Color YELLOW Urine Clarity CLEAR Urine pH 6.0 Ur Specific [place] 1.025 Urine Protein NEGATIVE Urine Glucose (UA) NEGATIVE Urine Ketones NEGATIVE Urine Occult Blood NEGATIVE Urine Nitrite NEGATIVE Urine Bilirubin NEGATIVE Urine Urobilinogen 1 (NORMAL) Ur Leukocyte Esterase NEGATIVE Ur Microscopic Review NOT INDICATED Urine Culture Comments NOT INDICATED Urine HCG, Qual NEGATIVE PD MEDICAL DECISION MAKING - ED course Complexity details: reviewed results, re-evaluated patient, d/w patient ED course: Patient presenting for evaluation of constipation. Vital signs are stable and abdominal exam is benign. No significant stool felt on rectal exam as patient had given herself an enema earlier today. Labs reviewed without significant abnormalities. Discussed treatment options for constipation including trial of MiraLAX which patient is agreeable to. Patient advised on strict return precautions. Departure - Departure Disposition: Home, Self Care Clinical Impression: Constipation Qualifiers: Constipation type: unspecified constipation type Qualified Code(s): K59.00 - Constipation, unspecified Condition: Stable Instructions: ED Constipation Comments: You were evaluated this evening for difficulties with your bowel movement. On exam you do not have a large amount of stool in your rectum that would benefit from having an enema. Your vital signs were stable and Your labs did not show any significant abnormalities. There are other ways of managing constipation including with oral medication such as MiraLAX. I would recommend using MiraLAX daily for the next several days as well as making sure you stay hydrated. If you have any worsening abdominal pain or develop any other new symptoms please consider return to the emergency department. Discharge Date/Time: 11/11/21 01:02
[2021-11-11 01:03] VITALS: BP 131/79
== END 2021-11-11 01:02 | disposition home or self-care (01) ==
LOC: ED 21:08
DX: K59.00 Constipation, unspecified (principal)
CPT/HCPCS: 36415; 80053; 81001; 81003; 81025; 83690; 85025; 87086; 99282; 99283

== ENCOUNTER 2022-02-22 14:31 | Outpatient (CLI) | payer OTHER ==
[2022-02-22 18:19] LABS: CREATININE,URINE 195.5 mg/dL; MICROALBUM/CREATININE RATIO,UR 5.1 ug/mg (<30.0)
[2022-02-22 19:21] LABS: THYROID STIMULATING HORMONE 0.84 uIU/mL (0.34-5.60)
[2022-02-22 19:23] LABS: FREE T4 (FREE THYROXINE) 1.01 ng/dL (0.58-1.64)
== END 2022-02-22 14:32 | disposition home or self-care (01) ==
LOC: LAB.N 14:31
PROVIDERS: ATTEND Family Medicine
DX: I10 Essential (primary) hypertension (principal); E11.9 Type 2 diabetes mellitus without complications; E03.9 Hypothyroidism, unspecified
CPT/HCPCS: 36415; 82043; 82570; 84439; 84443; 84480

== ENCOUNTER 2022-03-28 08:04 | Outpatient (CLI) | payer OTHER ==
[2022-03-28 08:57] LABS: ALBUMIN 3.7 g/dL (3.2-5.5); ALKALINE PHOSPHATASE 44 IU/L (42-121); ALT ALANINE AMINOTRANSFERASE 36 IU/L (10-60); AST ASPARTATE AMINOTRANSFERASE 36 IU/L (10-42); BILIRUBIN,TOTAL 0.4 mg/dL (0.2-1.0); BUN - BLOOD UREA NITROGEN 11 mg/dL (6-20); CALCIUM 9.3 mg/dL (8.5-10.3); CARBON DIOXIDE - CO2 26 mmol/L (21-32); CHLORIDE 102 mmol/L (101-111); CHOL/HDL RATIO 3.3 (<4.4); CHOLESTEROL 139 mg/dL; CREATININE 0.6 mg/dL (0.4-1.0); GFR - MDRD 132 (>89); GLUCOSE 137 mg/dL (70-100); HDL CHOLESTEROL 42 mg/dL; LDL CHOLESTEROL,CALCULATED 78 mg/dL; LDL/HDL RATIO 1.9 (<4.4); POTASSIUM 4.3 mmol/L (3.5-5.0); SODIUM 138 mmol/L (135-145); TOTAL PROTEIN 7.3 g/dL (6.7-8.2); TRIGLYCERIDES 97 mg/dL; VLDL CHOLESTEROL 19 mg/dL
[2022-03-28 09:02] LABS: THYROID STIMULATING HORMONE 0.1 uIU/mL (0.34-5.60)
[2022-03-28 09:49] LABS: FREE T4 (FREE THYROXINE) 1.17 ng/dL (0.58-1.64)
[2022-03-28 15:06] LABS: ESTIMATED AVERAGE GLUCOSE 154 mg/dL (70-100)
== END 2022-03-28 08:05 | disposition home or self-care (01) ==
LOC: LAB 08:04
PROVIDERS: ATTEND Family Medicine
DX: I10 Essential (primary) hypertension (principal); E11.9 Type 2 diabetes mellitus without complications; E03.9 Hypothyroidism, unspecified; E55.9 Vitamin D deficiency, unspecified
CPT/HCPCS: 36415; 80053; 80061; 82306; 83036; 83721; 84439; 84443; 84480

== ENCOUNTER 2022-04-10 08:00 | Outpatient (CLI) | payer OTHER | END 2022-04-10 23:59 | disposition home or self-care (01) | LOC: LAB.N 08:00 | PROVIDERS: ATTEND Registered Nurse | DX: N30.00 Acute cystitis without hematuria (principal) | CPT/HCPCS: 87086 ==

== ENCOUNTER 2022-05-03 14:43 | Outpatient (CLI) | payer OTHER ==
[2022-05-03 18:09] LABS: THYROID STIMULATING HORMONE < 0.08 uIU/mL (0.34-5.60)
== END 2022-05-03 14:44 | disposition home or self-care (01) ==
LOC: LAB.N 14:43
PROVIDERS: ATTEND Family Medicine
DX: E03.9 Hypothyroidism, unspecified (principal)
CPT/HCPCS: 36415; 84439; 84443

== ENCOUNTER 2022-06-18 14:40 | Outpatient (CLI) | payer OTHER ==
[2022-06-18 15:36] VITALS: BP 108/72
--- NOTE | 2022-06-18 15:36 | SLEEP CARE CONSULTATION ---
Information from patient questionnaire entered by Karla Sy. I have reviewed and concur with the information entered by Karla Sy. This document represents the service I personally performed and the decisions made by me, Gillian Warner ARNP. History of Present Illness Service Date and Time: 06/18/2022 1440 Reason for Visit: New patient, Previously diagnosed sleep apnea Chief Complaint: reports: Unrefreshed sleep, Snoring Date of Onset: forever Usual bedtime: 9PM WEEKDAYS 10-11PM WEEKENDS Time it takes to fall asleep: NOT LONG Snores at night: Yes Observed to quit breathing while asleep: No (probably) Sleeps alone due to snoring: No Number of times waking at night: NOT SURE - 1 to 2 times Reasons for waking at night: reports: Bathroom. denies: Choking, Snoring, Gasping for air Toss, Turn, or Twitch while sleeping: Yes Recalls having dreams: Yes Usually gets out of bed at: 330AM 8-9 WEEKENDS Feels refreshed in the morning: No Morning headache: Yes (1-2 times a month) Sleepy or fatigued during the day: Yes Ever fallen asleep while driving: No (some drowsy driving occasionally) Takes day naps: No Prior sleep studies: Yes ([facility] 3-5[facility] AGO) Additional HPI information: I had the pleasure of seeing GINA COLÓN today regarding the possibility of her having a sleep disorder. Her current complaints are snoring and unrefreshed sleep. She was diagnosed here at [facility] with mild obstructive sleep apnea in 2017 with an AHI of 6.5. She states she was on a CPAP but stopped using it. 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 Patient is and lives in [place]. Have you smoked in the past 12 months: No Alcohol use: No Caffeine use: Yes Caffeine amount and frequency: 1-2 times a month Family History Family history of sleep disordered breathing: Yes Family Hx Sleep Apnea: Mother: Sleep apnea - Untreated, Sibling: Sleep apnea - Untreated Allergies and Home Medications Known drug allergies: No Drug allergies reviewed: Yes Home medication list reviewed: Yes Allergy and home medication list: Medications: Losartan 50 mg daily Metoprolol 50 mg daily Synthroid 112 mcg 2 tabs daily Jardiance 10 mg daily Rosuvastatin 20 mg Oxybutinin 10 mg Metformin ER 750 mg, 2 daily Ozempic 2 mg weekly injection Review of Systems Weight gain over past 5 years: 50 Weight loss over past 5 years: 40, down right now Cardiovascular: reports: high blood pressure Gastrointestinal: reports: nausea (due to meds), diarrhea (due to meds) Neurological: denies: headaches Psychiatric: denies: anxiety, depression, mood disorder Ear/Nose/Throat: denies: tonsillectomy Endocrine: reports: thyroid disease Physical Exam Vital signs obtained and entered by: KARLA Alonso MA Blood Pressure: 108/72 (LEFT ARM) Cuff size: long Heart Rate: 91 O2 Saturation: 97 Height: 5 ft 6 in Weight: 241 lb 6.4 oz Body Mass Index: 38.9 BMI Classification: Obese Neck circumference: 15.25 Mouth and throat: narrow oropharynx Soft palate: long Hard palate: arched Uvula: normal Uvula visualization: 0% Mallampati Class IV Tongue: enlarged in size with teeth mckeon on lateral edges Tonsils: 2+ Heart: regular rate and rhythm Lungs: clear bilaterally Impression and Plan 1. Suspected Obstructive Sleep Apnea-Hypopnea Syndrome, as previously diagnosed and as suggested by a history of loud and irregular snoring, unrefreshed sleep, cognitive impairment, and excessive daytime sleepiness. Narrow oropharynx and obesity are common predisposing factors for obstructive sleep apnea-hypopnea syndrome. I recommend proceeding to polysomnography to confirm the diagnosis and to assess severity. If the patient has significant sleep disordered breathing, a manual CPAP titration study will also be performed to find the optimal treatment pressure. I informed the patient of what the sleep studies involve and after some discussion, obtained agreement to proceed. The pathophysiology of obstructive sleep apnea-hypopnea syndrome was discussed with the patient and health risks of cardiovascular and cerebrovascular disease if not treated. Risks of drowsy driving discussed in detail and patient advised to avoid long distance driving and to machine puller over at the first sign of drowsiness. Patient agreed to plan. * Schedule polysomnography * Avoid long distance driving or driving when feeling sleepy. * Avoid alcohol, sedative and muscle relaxant around bedtime. * Attempt to lose weight. * Review instructions provided by trained office staff on how to prepare for the sleep study. * Return for follow-up after sleep study completed. Counseling Topics: Weight loss health impact Visit Type: In Office Time Spent with Patient (minutes): 32 Provider Statement: I spent 100% of the Face to Face Visit with the patient with greater than 50% spent counseling the patient and coordination of care.
== END 2022-06-18 14:41 | disposition home or self-care (01) ==
LOC: SC 14:40
PROVIDERS: ATTEND Nurse Practitioner Family
DX: G47.10 Hypersomnia, unspecified (principal); R06.83 Snoring; G47.8 Other sleep disorders; E11.9 Type 2 diabetes mellitus without complications; I10 Essential (primary) hypertension; E66.9 Obesity, unspecified; Z68.38 Body mass index [BMI] 38.0-38.9, adult
CPT/HCPCS: 99203; 99212

== ENCOUNTER 2022-06-26 08:49 | Outpatient (CLI) | payer OTHER ==
[2022-06-26 19:32] LABS: CREATININE,URINE 145.6 mg/dL; MICROALBUM/CREATININE RATIO,UR 4.8 ug/mg (<30.0); MICROALBUMIN,URINE 0.7 mg/dL (0-300.0)
[2022-06-26 19:54] LABS: ALBUMIN/GLOBULIN RATIO 1.1 (1.0-2.2); ALKALINE PHOSPHATASE 39 IU/L (42-121); ALT ALANINE AMINOTRANSFERASE 18 IU/L (10-60); AST ASPARTATE AMINOTRANSFERASE 28 IU/L (10-42); BILIRUBIN,TOTAL 0.5 mg/dL (0.2-1.0); BUN - BLOOD UREA NITROGEN 11 mg/dL (6-20); CALCIUM 9.4 mg/dL (8.5-10.3); CARBON DIOXIDE - CO2 26 mmol/L (21-32); CHLORIDE 104 mmol/L (101-111); CHOL/HDL RATIO 3.2 (<4.4); CHOLESTEROL 145 mg/dL; CREATININE 0.7 mg/dL (0.4-1.0); GFR - MDRD 110 (>89); GLUCOSE 103 mg/dL (70-100); HDL CHOLESTEROL 45 mg/dL; LDL CHOLESTEROL,CALCULATED 80 mg/dL; LDL/HDL RATIO 1.8 (<4.4); POTASSIUM 4.1 mmol/L (3.5-5.0); SODIUM 136 mmol/L (135-145); TOTAL PROTEIN 7.7 g/dL (6.7-8.2); TRIGLYCERIDES 100 mg/dL; VLDL CHOLESTEROL 20 mg/dL
[2022-06-26 20:06] LABS: THYROID STIMULATING HORMONE < 0.08 uIU/mL (0.34-5.60)
[2022-06-26 20:08] LABS: FREE T4 (FREE THYROXINE) 1.14 ng/dL (0.58-1.64)
[2022-06-26 20:15] LABS: ESTIMATED AVERAGE GLUCOSE 137 mg/dL (70-100); HEMOGLOBIN A1c% 6.4 % (4.27-6.07)
== END 2022-06-26 08:50 | disposition home or self-care (01) ==
LOC: LAB.N 08:49
PROVIDERS: ATTEND Family Medicine
DX: I10 Essential (primary) hypertension (principal); E03.9 Hypothyroidism, unspecified; E11.9 Type 2 diabetes mellitus without complications; E78.5 Hyperlipidemia, unspecified
CPT/HCPCS: 36415; 80053; 80061; 82043; 82570; 83036; 83721; 84439; 84443

== ENCOUNTER 2022-07-18 12:17 | Outpatient (CLI) | payer OTHER ==
--- NOTE | 2022-07-18 12:46 | XRAY Report ---
PROCEDURE: Hip w/Pelvis 2-3V RT INDICATIONS: PAIN IN RIGHT HIP TECHNIQUE: AP pelvis with lateral view(s) of the right hip(s). COMPARISON: None. FINDINGS: Bones: No fractures or dislocations. Pelvic ring appears intact. No suspicious bony lesions. Mild articular osteophyte formation at the bilateral hip joints. Soft tissues: The visualized bowel gas pattern is normal. No suspicious soft tissue calcifications. IMPRESSION: Bilateral hip osteoarthritis. No acute fracture. No osseous lesion. If symptoms and/or c linical suspicion for pathology continue, further assessment with repeat plain films, or advanced michael ging (e.g., CT, MRI, or bone scan) is recommended for further assessment. Reviewed by: Karie Carroll MD on 07/18/2022 12:44 PM PDT Approved by: Karie Carroll MD on 07/18/2022 12:44 PM PDT Station ID: [id number]
--- NOTE | 2022-07-18 12:46 | XRAY Report ---
PROCEDURE: Lumbar Spine 2 View INDICATIONS: LOW BACK PAIN, UNSPECIFIED TECHNIQUE: 2 views of the lumbar spine were acquired. COMPARISON: None. FINDINGS: Bones: 5 [id number] vertebrae are present. There is normal bony alignment. No vertebral body compression fractures. No suspicious bony lesions. Soft tissues: Overlying bowel gas pattern is normal. No suspicious soft tissue calcifications. IMPRESSION: No acute fracture. No osseous lesion. If symptoms and/or clinical suspicion for patholog y continue, further assessment with repeat plain films, or advanced imaging (e.g., CT, MRI, or bone s can) is recommended for further assessment. Reviewed by: Karie Carroll MD on 07/18/2022 12:44 PM PDT Approved by: Karie Carroll MD on 07/18/2022 12:44 PM PDT Station ID: [id number]
== END 2022-07-18 12:18 | disposition home or self-care (01) ==
LOC: DI 12:17
PROVIDERS: ATTEND Nurse Practitioner Family
DX: M54.50 Low back pain, unspecified (principal); M16.0 Bilateral primary osteoarthritis of hip

== ENCOUNTER 2022-07-22 08:00 | Outpatient (CLI) | payer OTHER ==
[2022-07-23 02:49] LABS: BACTERIAL VAGINOSIS DNA NEGATIVE (NEGATIVE); CANDIDA GLABRATA DNA NEGATIVE (NEGATIVE); CANDIDA GROUP DNA NEGATIVE (NEGATIVE); CANDIDA KRUSEI DNA NEGATIVE (NEGATIVE); TRICHOMONAS VAGINALIS DNA NEGATIVE (NEGATIVE)
== END 2022-07-22 23:59 | disposition home or self-care (01) ==
LOC: LAB.N 08:00
PROVIDERS: ATTEND Registered Nurse
DX: R30.0 Dysuria (principal)
CPT/HCPCS: 81514; 87086

== ENCOUNTER 2022-08-09 08:00 | Outpatient (CLI) | payer OTHER ==
[2022-08-10 18:27] LABS: BACTERIAL VAGINOSIS DNA NEGATIVE (NEGATIVE); CANDIDA GROUP DNA NEGATIVE (NEGATIVE); CANDIDA KRUSEI DNA NEGATIVE (NEGATIVE); TRICHOMONAS VAGINALIS DNA NEGATIVE (NEGATIVE)
[2022-08-10 18:28] LABS: CANDIDA GLABRATA DNA POSITIVE (NEGATIVE); CHLAMYDIA TRACHOMATIS DNA NEGATIVE (NEGATIVE); NEISSERIA GONORRHOEAE DNA NEGATIVE (NEGATIVE)
== END 2022-08-09 23:59 | disposition home or self-care (01) ==
LOC: LAB.WC 08:00
PROVIDERS: ATTEND Nurse Practitioner
DX: R30.0 Dysuria (principal); Z11.3 Encounter for screening for infections with a predominantly sexual mode of transmission; L29.8 Other pruritus
CPT/HCPCS: 81514; 87491; 87591; 87661

== ENCOUNTER 2022-08-13 19:41 | Outpatient (CLI) | payer OTHER | END 2022-08-13 19:42 | disposition home or self-care (01) | LOC: SC 19:41 | PROVIDERS: ATTEND Nurse Practitioner Family | DX: R06.83 Snoring (principal); G47.10 Hypersomnia, unspecified; E66.9 Obesity, unspecified; Z68.38 Body mass index [BMI] 38.0-38.9, adult | CPT/HCPCS: 95810 ==

== ENCOUNTER 2022-08-25 11:48 | Outpatient (CLI) | payer OTHER ==
--- NOTE | 2022-08-25 10:37 | Sleep Patient Instructions ---
Sleep Center Visit Summary - Patient Visit Information Reason for Visit: Sleep study follow up - Patient Instructions Instructions Attached: Snoring Sleep Apnea Additional Instructions: Your sleep study today was negative for significant sleep disordered breathing. However, you did have elevated respiratory episodes when sleeping on your back. You should avoid sleeping on your back to control these respiratory episodes. You were found to have episodes of snoring. There are different ways to control snoring including weight loss, oral devices made by a dentist for surgical options through ENT specialist. You should not use oral devices that do not fit properly because they can affect your bite. You should also check insurance coverage of oral devices for snoring because they may not be cover well. You may obtain a referral to an ENT specialist through your primary provider Follow-up as needed. - Clinic Information Contact: [facility] [address] [place] [address] [email or web address] T: [phone]
[2022-08-25 11:34] VITALS: BP 117/80
--- NOTE | 2022-08-25 11:34 | SLEEP CARE CONSULTATION ---
Information from patient questionnaire entered by Gracia Sy. I have reviewed and concur with the information entered by Gracia Sy. This document represents the service I personally performed and the decisions made by , Gillian Warner ARNP. History of Present Illness Service Date and Time: 08/25/2022 1140 Initial [place] Sleepiness Scale score: 16 (06/18/22) Current [place] Sleepiness Scale score: 9 (08/25/22) Additional HPI information: GINA COLÓN returns via video telehealth visit for follow up and results of the recently performed polysomnography. The patient was informed of the following findings: No significant sleep disordered breathing with an average AHI of 4.7 and zach oxygen saturation of 81%. Supine AHI 9.3. I explained the pathophysiology behind obstructive sleep apnea. Patient does not have sleep apnea and was advised how weight gain could increase the risk of developing sleep apnea in the future. I strongly encouraged the patient to lose weight. Patient does not have significant sleep disordered breathing but has elevated AHI in supine position so advised positional therapy. Methods to achieve positional management therapy were discussed; such as, positioning with pillows, wearing a T-shirt with tennis balls sewn into the back or commercially available products. Patient has loud snoring. Snoring can be reduced by weight loss. Weight loss is best achieved with diet consult. Patient instructed to contact PCP for referral. Snoring can also be treated with an oral appliance from a dentist. Advised to check insurance coverage. In addition, an ENT evaluation can be do to see if other treatment is indicated. Patient does not drink alcohol. Patient was cautioned about risks of drowsy driving until sleepiness symptoms resolve. Patient denies drowsy driving. Sleep Study - Results Type of Sleep Study: Polysomnography (COMPLETED 08/13/22) Prior sleep studies: Yes ([facility] 3-5YRS AGO) Polysomnography/Home Sleep Study results: IMPRESSION: The quality of the study is good. The patient had normal sleep efficiency. The sleep architecture was also normal. Respiratory monitoring showed no significant sleep disordered breathing (AHI = 4.7) or hypoxia (zach oxygen saturation of 81% but only 0.3% to the total sleep time was spent with oxygen saturation below 90%). The few respiratory events occurred almost exclusively during supine REM sleep (supine AHI = 9.3; non-supine = 0.66). Snore was loud in intensity. There was no significant periodic leg movement of sleep. Cardiac rhythm was normal sinus rhythm without significant arrhythmia. No abnormal behavior (parasomnia) observed during the night. Allergies and Home Medications Known drug allergies: No Drug allergies reviewed: Yes Home medication list reviewed: Yes (stopped Jardiance) Allergy and home medication list: Allergies No Known Drug Allergies Allergy (Verified 08/24/22 13:40) Review of Systems Review of systems same as previous: Yes (no changes) Physical Exam Vital signs obtained and entered by: GRACIA Alonso MA Blood Pressure: 117/80 (PER PT) Height: 5 ft 6 in (PER PT) Weight: 240 lb (PER PT) Body Mass Index: 38.7 BMI Classification: Obese Impression and Plan Snoring but no significant sleep disordered breathing. However, patient had an elevated supine AHI of 9.3 and should avoid sleeping supine. Patient advised that often weight loss will reduce snoring as well as apnea risk. An oral appliance can also be used for snoring. This would require a dental consultation. Patient cautioned not to use other online appliances as can cause bite issues. A list of accredited dentists in [facility] and one local dentist who makes oral appliances is available in the office as needed. Patient is advised to check if insurance will cover. An ENT consult can also be helpful to determine if any other treatment is an option. * Avoid sleeping supine * Attempt to lose weight * Avoid alcohol consumption near bedtime * The patient is cautioned about driving until sleepiness is completely resolved. * Return as needed for follow up. Counseling Topics: Sleeping position, Weight loss health impact Visit Type: Telehealth Video Video Type: Hemal Patient Location: Work Location of Provider: Office Patient agrees and consents to this telehealth visit type: Yes Patient agrees to have their insurance billed: Yes Time Spent with Patient (minutes): 10 Provider Statement: I spent 100% of the Telehealth Video Call with the patient with greater than 50% spent counseling the patient and coordination of care.
== END 2022-08-25 11:49 | disposition home or self-care (01) ==
LOC: SC 11:48
PROVIDERS: ATTEND Nurse Practitioner Family
DX: R06.83 Snoring (principal); E66.9 Obesity, unspecified; Z68.38 Body mass index [BMI] 38.0-38.9, adult

== ENCOUNTER 2022-10-02 10:42 | Outpatient (CLI) | payer OTHER ==
[2022-10-02 18:45] LABS: CREATININE,URINE 165.6 mg/dL; MICROALBUM/CREATININE RATIO,UR 3.6 ug/mg (<30.0); MICROALBUMIN,URINE 0.6 mg/dL (0-300.0)
[2022-10-02 18:52] LABS: ALBUMIN/GLOBULIN RATIO 1.1 (1.0-2.2); ALKALINE PHOSPHATASE 38 IU/L (42-121); ALT ALANINE AMINOTRANSFERASE 14 IU/L (10-60); AST ASPARTATE AMINOTRANSFERASE 18 IU/L (10-42); BILIRUBIN,TOTAL 0.7 mg/dL (0.2-1.0); BUN - BLOOD UREA NITROGEN 9 mg/dL (6-20); CALCIUM 9.1 mg/dL (8.5-10.3); CARBON DIOXIDE - CO2 29 mmol/L (21-32); CHLORIDE 102 mmol/L (101-111); CHOL/HDL RATIO 2.5 (<4.4); CHOLESTEROL 126 mg/dL; CREATININE 0.6 mg/dL (0.4-1.0); GFR - MDRD 132 (>89); GLUCOSE 95 mg/dL (70-100); HDL CHOLESTEROL 50 mg/dL; LDL CHOLESTEROL,CALCULATED 52 mg/dL; POTASSIUM 4.1 mmol/L (3.5-5.0); SODIUM 138 mmol/L (135-145); TOTAL PROTEIN 7.5 g/dL (6.7-8.2); TRIGLYCERIDES 118 mg/dL; VLDL CHOLESTEROL 24 mg/dL
[2022-10-02 19:07] LABS: THYROID STIMULATING HORMONE 0.18 uIU/mL (0.34-5.60)
[2022-10-02 19:37] LABS: ESTIMATED AVERAGE GLUCOSE 143 mg/dL (70-100); HEMOGLOBIN A1c% 6.6 % (4.27-6.07)
[2022-10-02 19:48] LABS: FREE T4 (FREE THYROXINE) 1.37 ng/dL (0.58-1.64)
== END 2022-10-02 10:43 | disposition home or self-care (01) ==
LOC: LAB.N 10:42
PROVIDERS: ATTEND Nurse Practitioner Family
DX: E03.9 Hypothyroidism, unspecified (principal); E11.9 Type 2 diabetes mellitus without complications; Z13.220 Encounter for screening for lipoid disorders
CPT/HCPCS: 36415; 80053; 80061; 82043; 82570; 83036; 83721; 84439; 84443

== ENCOUNTER 2023-11-22 08:04 | Outpatient (CLI) | payer BC, OTHER ==
[2023-11-22 08:56] LABS: ALBUMIN 4.6 g/dL (3.2-5.5); ALBUMIN/GLOBULIN RATIO 1.6 (1.0-2.2); ALKALINE PHOSPHATASE 43 IU/L (42-121); ALT ALANINE AMINOTRANSFERASE 32 IU/L (10-60); AST ASPARTATE AMINOTRANSFERASE 45 IU/L (10-42); BILIRUBIN,TOTAL 0.5 mg/dL (0.2-1.0); BUN - BLOOD UREA NITROGEN 9 mg/dL (6-20); CALCIUM 9.7 mg/dL (8.5-10.3); CARBON DIOXIDE - CO2 26 mmol/L (21-32); CHLORIDE 97 mmol/L (101-111); CHOL/HDL RATIO 4.3 (<4.4); CHOLESTEROL 164 mg/dL; CREATININE 0.7 mg/dL (0.6-1.3); GFR - MDRD 109 (>89); GLUCOSE 235 mg/dL (74-104); HDL CHOLESTEROL 38 mg/dL; LDL CHOLESTEROL,CALCULATED 84 mg/dL; LDL/HDL RATIO 2.2 (<4.4); POTASSIUM 4.2 mmol/L (3.5-4.5); SODIUM 133 mmol/L (135-145); TOTAL PROTEIN 7.5 g/dL (6.4-8.9); TRIGLYCERIDES 209 mg/dL; VLDL CHOLESTEROL 42 mg/dL
[2023-11-22 10:42] LABS: ESTIMATED AVERAGE GLUCOSE 226 mg/dL (70-100); HEMOGLOBIN A1c% 9.5 % (4.27-6.07)
== END 2023-11-22 08:05 | disposition home or self-care (01) ==
LOC: LAB 08:04
PROVIDERS: ATTEND Student in an Organized Health Care Education/Training Program
DX: E11.8 Type 2 diabetes mellitus with unspecified complications (principal); E03.9 Hypothyroidism, unspecified; E78.2 Mixed hyperlipidemia
CPT/HCPCS: 36415; 80053; 80061; 83036; 83721; 84439; 84443